=== PATIENT | male | born 1965 | race Hispanic/Latino ===

== ENCOUNTER 2019-08-20 00:48 | Emergency (ER) | payer SELFPAY ==
[2019-08-20] MEDS ORDERED: DIPHENHYDRAMINE HCL 25 MG CAPSULE ONE (01:32)
[2019-08-20] MEDS ORDERED: IPRATROPIUM/ALBUTEROL SULFATE 3 ML SOLUTION IH ONE (02:03)
[2019-08-20] MEDS ORDERED: DiphenhydrAMINE HCL 50 MG/ML VIAL ONE (02:05)
[2019-08-20] MEDS ORDERED: METHYLPREDNISOLONE SOD SUCC 125MG/2ML VIAL ONE (02:05)
[2019-08-20] MEDS ORDERED: ALBUTEROL SULFATE 0.083% 2.5 MG/3 ML INH IH ONE ×2 (02:05→02:09)
== END 2019-08-20 01:43 | disposition home or self-care (01) ==
LOC: EDH 00:48
DX: J30.9 Allergic rhinitis, unspecified (principal); R09.81 Nasal congestion; E11.9 Type 2 diabetes mellitus without complications; Z90.49 Acquired absence of other specified parts of digestive tract
CPT/HCPCS: 99282; Q0163; J1200; J2930

== ENCOUNTER 2019-12-30 13:38 | Emergency (ER) | payer OTHER | END 2019-12-30 14:42 | disposition left against medical advice (07) | LOC: EDH 13:38 | DX: H61.22 Impacted cerumen, left ear (principal); E11.9 Type 2 diabetes mellitus without complications; I10 Essential (primary) hypertension | CPT/HCPCS: 99281 ==